=== PATIENT | male | born 1945 | race Caucasian/White ===

== ENCOUNTER 2019-04-01 07:50 | Emergency (ER) | payer MEDICARE, OTHER ==
[~2019-04-01] VITALS: Ht 172.7 cm; Wt 81.8 kg
[2019-04-01 08:05] VITALS: BP 184/87; PULSE 87; TEMP 98.7
[2019-04-01 08:31] LABS: BASO % 0.4 % (0.0-2.0); EOS % 0.4 % (0-4.0); GRAN # 6.2 (1.4-6.5); GRAN % 80.7 % (42.2-75.2); HEMATOCRIT 45.2 % (42.0-52.0); HEMOGLOBIN 15.4 g/dl (13.5-18.0); LYMPH % 13.5 % (20.0-51.0); MEAN CELL VOLUME 86 fl (80.0-100.0); MEAN CORPUSCULAR HEMOGLOBIN 29 pg (27.0-31.0); MEAN CORPUSCULAR HGB CONC 34 g/dl (33.0-37.0); MEAN PLATELET VOLUME 10.1 fl (7.4-10.4); MONO # 0.4 (0.1-0.6); MONO % 4.9 % (1.7-9.3); PLATELET COUNT 165 K/mm3 (130-400); RED BLOOD COUNT 5.23 M/mm3 (4.20-5.60); REDCELL DISTRIBUTION WIDTH-CV 13.2 % (11.5-14.5)
[2019-04-01 08:44] LABS: COLLECTION METHOD IN
[2019-04-01 08:46] LABS: CALCIUM 9.6 mg/dL (8.4-10.2); CREATININE, serum 0.95 (0.66-1.25); POTASSIUM 3.8 mmol/L (3.4-5.0)
[2019-04-01 08:52] LABS: MUCOUS Present /lpf; PH 5 (5-8); SQUAMOUS EPITHELIAL None Seen /hpf; URINE APPEARANCE Clear; URINE BACTERIA None Seen /hpf; URINE BILIRUBIN Negative (NEGATIVE); URINE BLOOD 1+ (NEGATIVE); URINE COLOR Yellow; URINE GLUCOSE Negative (NEGATIVE); URINE KETONE Negative (NEGATIVE); URINE LEUKOCYTE ESTERASE Negative (NEGATIVE); URINE NITRATE Negative (NEGATIVE); URINE PROTEIN(semi-quant) Negative (NEGATIVE); URINE UROBILINOGEN Negative (NEGATIVE)
[2019-04-01] MEDS ORDERED: FLOMAX 0.40.4 MG/CAP PO (09:01)
[2019-04-01] MEDS ORDERED: MACROBID 1100 MG/CAP PO (09:01)
[2019-04-01] MEDS ORDERED: B COMPLEX & B121 TAB (09:04)
[2019-04-01] MEDS ORDERED: HYZAAR 12.5 MG-1 TAB PO (09:04)
[2019-04-01] MEDS ORDERED: ASPIRIN 81M81 MG/TA2 PO (09:04)
== END 2019-04-01 09:40 | disposition home or self-care (01) ==
LOC: COL.ER 07:50
PROVIDERS: Emergency Medicine
DX: R33.9 Retention of urine, unspecified (principal); Z79.82 Long term (current) use of aspirin

== ENCOUNTER 2019-04-10 03:01 | Emergency (ER) | payer MEDICARE, OTHER ==
[~2019-04-10] VITALS: Ht 172.7 cm; Wt 81.8 kg
[~2019-04-10 03:01] MED LIST: ASPIRIN 81M81 MG/TA2 PO; B COMPLEX & B121 TAB; FLOMAX 0.40.4 MG/CAP PO; HYZAAR 12.5 MG-1 TAB PO; MACROBID 1100 MG/CAP PO
[2019-04-10 03:23] LABS: BASO % 0.2 % (0.0-2.0); EOS % 0.1 % (0-4.0); GRAN # 10.7 (1.4-6.5); GRAN % 81.1 % (42.2-75.2); HEMATOCRIT 41.2 % (42.0-52.0); LYMPH # 1.4 (1.2-3.4); LYMPH % 10.3 % (20.0-51.0); MEAN CELL VOLUME 87 fl (80.0-100.0); MEAN CORPUSCULAR HEMOGLOBIN 29 pg (27.0-31.0); MEAN CORPUSCULAR HGB CONC 34 g/dl (33.0-37.0); MEAN PLATELET VOLUME 10.1 fl (7.4-10.4); MONO # 1.1 (0.1-0.6); PLATELET COUNT 128 K/mm3 (130-400); RED BLOOD COUNT 4.76 M/mm3 (4.20-5.60); REDCELL DISTRIBUTION WIDTH-CV 13.2 % (11.5-14.5)
[2019-04-10 03:43] LABS: CALCIUM 9.1 mg/dL (8.4-10.2); CREATININE, serum 1.12 (0.66-1.25); POTASSIUM 3.6 mmol/L (3.4-5.0)
[2019-04-10 03:46] LABS: COLLECTION METHOD IN
[2019-04-10 03:56] LABS: MUCOUS Present /lpf; PH 6 (5-8); SQUAMOUS EPITHELIAL None Seen /hpf; URINE APPEARANCE Clear; URINE BACTERIA None Seen /hpf; URINE BILIRUBIN Negative (NEGATIVE); URINE BLOOD 2+ (NEGATIVE); URINE COLOR Yellow; URINE GLUCOSE Negative (NEGATIVE); URINE KETONE Negative (NEGATIVE); URINE LEUKOCYTE ESTERASE Negative (NEGATIVE); URINE NITRATE Negative (NEGATIVE); URINE PROTEIN(semi-quant) Negative (NEGATIVE); URINE UROBILINOGEN Negative (NEGATIVE)
[2019-04-10 04:52] VITALS: TEMP 99.3
[2019-04-10 05:16] VITALS: BP 112/68; PULSE 80
== END 2019-04-10 05:16 | disposition home or self-care (01) ==
LOC: COL.ER 03:01
PROVIDERS: Emergency Medicine
DX: R33.9 Retention of urine, unspecified (principal); I10 Essential (primary) hypertension; Z79.82 Long term (current) use of aspirin
CPT/HCPCS: J0696; J7030

== ENCOUNTER → 2019-04-23 | Outpatient (CLI) | payer MEDICARE, OTHER | LOC: COL.RAD 07:39 | DX: Z13.6 Encounter for screening for cardiovascular disorders (principal) ==

== ENCOUNTER → 2021-02-02 | Outpatient (CLI) | payer MEDICARE, OTHER ==
[~2021-02-02] MED LIST changes: +ASPIRIN E.C. 8181 MG PO; +B-12 500 MCG PO; +BRILINTA90 MG PO; +COZAAR 25MG25 MG/TAB PO; +PRAVACHOL 40MG40 MG PO; +PRESERVISION1 SGL PO; +SYNTHROID0.05 MG/TA PO
== END ==
LOC: COL.VAS 13:26
DX: I65.23 Occlusion and stenosis of bilateral carotid arteries (principal)

== ENCOUNTER 2021-05-01 09:50 | Day surgery (SDC) | payer MEDICARE, OTHER ==
[2021-05-01] VITALS (16 sets, daily range): BP systolic 96–154; BP diastolic 50–78; PULSE 51–71; TEMP 97.5–98.2
[~2021-05-01] VITALS: Ht 172.7 cm; Wt 79.2 kg
[~2021-05-01 09:50] MED LIST changes: -ASPIRIN E.C. 8181 MG PO; -B-12 500 MCG PO; -BRILINTA90 MG PO; -COZAAR 25MG25 MG/TAB PO; -PRAVACHOL 40MG40 MG PO; -PRESERVISION1 SGL PO; -SYNTHROID0.05 MG/TA PO
[2021-05-01] MEDS ORDERED: ASPIRIN E.C. 8181 MG PO (10:20)
[2021-05-01] MEDS ORDERED: HYZAAR 12.5 MG-1 TAB PO (10:20)
[2021-05-01] MEDS ORDERED: PRESERVISION1 SGL PO (10:21)
[2021-05-01] MEDS ORDERED: B-12 500 MCG PO (10:21)
[2021-05-01] MEDS ORDERED: SYNTHROID0.05 MG/TA PO (10:22)
[2021-05-01] MEDS ORDERED: PRAVACHOL 40MG40 MG PO (10:22)
[2021-05-01 10:57] LABS: HEMATOCRIT 39.5 % (42.0-52.0); HEMOGLOBIN 13.6 g/dl (13.5-18.0); MEAN CELL VOLUME 86 fl (80.0-100.0); MEAN CORPUSCULAR HEMOGLOBIN 30 pg (27.0-31.0); MEAN CORPUSCULAR HGB CONC 34 g/dl (33.0-37.0); MEAN PLATELET VOLUME 9.9 fl (7.4-10.4); PLATELET COUNT 139 K/mm3 (130-400); RED BLOOD COUNT 4.58 M/mm3 (4.20-5.60); REDCELL DISTRIBUTION WIDTH-CV 13.3 % (11.5-14.5)
[2021-05-01 11:07] LABS: INR 1.1 (0.8-3.0); PROTHROMBIN TIME 11.7 SECONDS (9.7-12.8)
[2021-05-01 11:10] LABS: PARTIAL THROMBOPLASTIN TIME 33.2 SECONDS (26.0-37.0)
[2021-05-01 11:13] LABS: ALBUMIN 4.1 gm/dL (3.5-5.0); BILIRUBIN,TOTAL 0.5 mg/dL (0.0-1.0); CALCIUM 8.9 mg/dL (8.4-10.2); CREATININE, serum 1.02 (0.66-1.25); MAGNESIUM 2.1 mg/dL (1.6-2.3); POTASSIUM 3.6 mmol/L (3.4-5.0)
[2021-05-01 12:22] LABS: THYROID STIMULATING HORMONE 1.194 uIU/mL (0.465-4.680)
--- NOTE | 2021-05-01 12:30 | NUR ---
SEE MERGE DOCUMENTATION FOR MEDICATION ADMINISTRATION TIMES AND INTRA/POST PROCEDURE SEDATION ASSESSMENTS.
--- NOTE | 2021-05-01 17:03 | NUR ---
PATIENT ADMITTED TO ROOM 311 FROM [facility] POST PROCEDURE. UPON INITIAL ASSESSMENT, NORMAL S1 AND S2 SOUND PRESENT, RADIAL AND PEDAL PULSES +2 BILATERALLY, LUNGS CLEAR TO AUSCULTATION, BOWEL SOUNDS PRESENT IN ALL FOUR QUADRANTS, PATIENT A&O. RADIAL COMPRESSION BAND APPLIED WITH 12 ML OF AIR, NO BLEEDING NOTED. PATIENT DENIES ANY PAIN, DISCOMFORT, OR SOA. MED REC AND ALLERGY INFORMATION REVIEWED. ADMISSION PAPERWORK COMPLETED. PATIENT DENIES ANY FURTHER NEEDS AT THIS TIME. CALL LIGHT IN REACH.
--- NOTE | 2021-05-01 17:20 | NUR ---
4ML OF AIR TAKEN FROM RADIAL BAND. NO BLEEDING NOTED.
--- NOTE | 2021-05-01 20:00 | NUR ---
Initial shift assessment done- denies pain, denies SOB, tele on, SR,, right wrist site without drainage,released 5 cc for TR band at this time-no drainage. up to bathroom, voiding without problems.
--- NOTE | 2021-05-01 21:10 | NUR ---
Last 3cc removed from TR band to right wrist- no bleeding, soft, no hematoma, did remove band and bandaid applied . VSS.
[2021-05-02 04:10] VITALS: BP 102/45; PULSE 49; TEMP 97.7
[2021-05-02 07:17] LABS: BASO % 0.4 % (0.0-2.0); EOS # 0.2 (0.0-0.7); EOS % 2.7 % (0-4.0); GRAN # 3.7 (1.4-6.5); GRAN % 65.8 % (42.2-75.2); HEMATOCRIT 37.1 % (42.0-52.0); HEMOGLOBIN 12.5 g/dl (13.5-18.0); LYMPH # 1.2 (1.2-3.4); LYMPH % 21.8 % (20.0-51.0); MEAN CELL VOLUME 89 fl (80.0-100.0); MEAN CORPUSCULAR HEMOGLOBIN 30 pg (27.0-31.0); MEAN CORPUSCULAR HGB CONC 34 g/dl (33.0-37.0); MEAN PLATELET VOLUME 10.2 fl (7.4-10.4); MONO # 0.5 (0.1-0.6); MONO % 9.1 % (1.7-9.3); PLATELET COUNT 141 K/mm3 (130-400); RED BLOOD COUNT 4.17 M/mm3 (4.20-5.60); REDCELL DISTRIBUTION WIDTH-CV 13.4 % (11.5-14.5)
[2021-05-02 07:29] VITALS: BP 98/42; PULSE 63; TEMP 97.7
[2021-05-02 08:11] LABS: CALCIUM 8.6 mg/dL (8.4-10.2); CREATININE, serum 1.01 (0.66-1.25); POTASSIUM 3.8 mmol/L (3.4-5.0)
[2021-05-02] MEDS ORDERED: BRILINTA90 MG PO (09:56)
[2021-05-02] MEDS ORDERED: COZAAR 25MG25 MG/TAB PO (09:57)
[2021-05-02 09:59] VITALS: BP 128/57; PULSE 49
--- NOTE | 2021-05-02 12:36 | NUR ---
SCHEDULED MEDS GIVEN. SHIFT ASSESSMENT PREFORMED. VSS. PATIENT DEEMED FIT FOR DISCHARGE. DISCHARGE EDUCATION/INSTRUCTIONS GIVEN. PHARMACY GAVE EDUCATION REGARDING BRILINTA. PATIENT DENIES ANY QUESTIONS, CONCERNS, OR FURTHER NEEDS AT THIS TIME. IV DC'D NO SIGNS OF PHLEBITIS. PATIENT AMBULATED OUT OF BUILDING ESCORTED BY VIA [facility]. TRANSPORTING HOME.
== END 2021-05-02 12:42 | disposition home or self-care (01) ==
LOC: COL.CAR 09:50 → MEDICAL 14:57 → COL.CAR 05-02 12:42
PROVIDERS: Internal Medicine Cardiovascular Disease
DX: I25.110 Atherosclerotic heart disease of native coronary artery with unstable angina pectoris (principal); I48.0 Paroxysmal atrial fibrillation; I25.82 Chronic total occlusion of coronary artery; I10 Essential (primary) hypertension; N40.0 Benign prostatic hyperplasia without lower urinary tract symptoms; E03.9 Hypothyroidism, unspecified; E78.5 Hyperlipidemia, unspecified; I65.29 Occlusion and stenosis of unspecified carotid artery
CPT/HCPCS: OP; C1769; C1874; C1887; C9600; J0583; J1644; J2250; J3010; Q9967

== ENCOUNTER → 2023-07-31 | Outpatient (CLI) | payer MEDICARE, OTHER ==
[~2023-07-31] MED LIST changes: +ASPIRIN E.C. 8181 MG PO; +B-12 500 MCG PO; +BRILINTA90 MG PO; +COZAAR 25MG25 MG/TAB PO; +PRAVACHOL 40MG40 MG PO; +PRESERVISION1 SGL PO; +SYNTHROID0.05 MG/TA PO
== END ==
LOC: COL.RAD 12:40
DX: I65.23 Occlusion and stenosis of bilateral carotid arteries (principal)